=== PATIENT | male | born 1955 | race Caucasian/White ===

== ENCOUNTER → 2017-07-17 | Day surgery (SDC) | payer BC ==
[~2017-07-17] MED LIST: ACETAMINOPHEN 1000 MG/100 ML 100 ML IV ONE; ACETAMINOPHEN/HYDROcodone 325 MG/5 MG TAB ONE; ALLO100T PO; AMLO5 PO; ASPI81TA82 PO; BUPIVACAINE/EPINEPHRINE 0.25% 50 ML VIAL ONE; KETOROLAC TROMETHAMINE 30 MG/ML (IVP) VIAL IV PUSH ONE; LACTATED RINGER'S 1000 ML INJ 1,000 ML ONE; LIDOCAINE 1%/EPINEPHrine 1:100,000 SOLN 50 ML VIAL ONE; MIDAZOLAM HCL 2 MG/2 ML VIAL ONE; ONDANSETRON HCL 4 MG/2 ML VIAL IV PUSH ONE; PROPOFOL 200 MG/20 ML AMP IV ONE; VANCOMYCIN HCL 1000 MG VIAL ONE; ceFAZolin INJ 1,000 MG VIAL ONE
--- NOTE | 2017-07-18 08:49 | MP ---
cc: SHOSHANA LEE M.D. DATE OF SURGERY 07/17/2017 PROCEDURE Left inguinal hernia repair with mesh. PREOPERATIVE DIAGNOSIS Reducible left inguinal hernia. POSTOPERATIVE DIAGNOSIS Reducible indirect left inguinal hernia. ANESTHESIA LMA SURGEON Shoshana Lee MD ESTIMATED BLOOD LOSS 25 mL FLUIDS 1150 mL crystalloid COMPLICATIONS None DRAINS None SPECIMEN None PROCEDURE IN DETAIL The patient was seen in the holding area and the left groin marked by the undersigned and confirmed by the patient. He was taken to the operating room and placed on the operating table in the supine position. After an adequate level of laryngeal mask anesthesia was instituted, the left groin was shaved, prepped and draped. Time-out was taken confirming the correct patient, site, and procedure to be performed. The skin and subcutaneous tissue was infiltrated with local anesthetic and an incision made in the left groin, carried down through the subcutaneous tissues. Further subfascial injections were made with local anesthetic and the external oblique fascia was opened in the direction of fibers. The spermatic cord structures were brought up with a [place] drain. The hernia sac was dissected free from the surrounding structures and dissected back to the level of the internal ring, after which it was then inverted into the abdominal cavity. The patient had a fairly weak floor as well and a 3 x 6 inch piece of atrium ProLite mesh was brought up and placed into the defect. The mesh was transfixed to the pubic tubercle with 2-0 Prolene suture which was then run along the shelving edge of the inguinal ligament to complete the lateral edge of the repair. The mesh was slit longitudinally to allow for egress of the cord structures. Interrupted 2-0 Prolene sutures were then used to complete the medial edge of the repair while trimming the mesh slightly to fit the defect. The medial leaf of mesh was brought over to the lateral leaf of the mesh and transfixed to the inguinal ligament to create a new internal ring. Three 2-0 Prolene sutures were placed to secure this. When this was completed and hemostasis was assured, the remaining local anesthetic was injected into the transversalis fascia and subcutaneous tissues. The iliohypogastric and ilioinguinal nerves were noted in these were kept intact and in their [place] tissue was much as possible with minimal dissection. Care was taken to avoid placing any sutures near the nerves. The external oblique fascia was then closed with a running 3-0 Vicryl suture with care taken to exclude the underlying cord structures and tissues. The wound was then closed with interrupted 3-0 Vicryl suture and the skin closed with 5-0 PDS in a running subcuticular fashion. The wound was dressed with Steri-Strips, followed by Telfa and Tegaderm. He was extubated and taken back to the recovery room in stable condition. Sponge, needle and instrument counts were reported to be correct. The patient tolerated the procedure well. MD SHANON Mobley/BECKA /11:44 PM /8:43 AM
== END | disposition home or self-care (01) ==
LOC: ESDC 06:21
PROVIDERS: ATTEND Surgery Trauma Surgery
DX: K40.90 Unilateral inguinal hernia, without obstruction or gangrene, not specified as recurrent (principal)
CPT/HCPCS: 00830; 49505; C1781; J0131; J0690; J1885; J2250; J2405; J3010; J3370; J7120